=== PATIENT | female | born 1950 | race Caucasian/White ===

== ENCOUNTER 2025-04-10 14:38 | Inpatient (IN) | payer MEDICARE, OTHER, SELFPAY ==
[2025-04-10] VITALS (8 sets, daily range): BP systolic 86–120; BP diastolic 51–73; BMI 33.4
[2025-04-10 12:03] LABS: Hematocrit 41.8 % (37.0-47.0); Hemoglobin 15.0 g/dL (12.0-16.0); Mean Corp Hgb Conc. 35.9 g/dL (33.0-37.0); Mean Corpuscular Volume 90.5 fL (81.0-99.0); Nucleated Red Blood Cells % 0 %; Platelet Count 285 10^3/uL (130-400); Red Cell Dist. Width 12.1 % (11.5-14.5)
[2025-04-10] MEDS: NSS 1000 IV ×2 (12:15→17:47)
[2025-04-10 12:20] LABS: COVID-19 Antigen Negative (Negative)
[2025-04-10 12:20] LABS: ALT (SGPT) 21 U/L (0-35); AST (SGOT) 27 U/L (14-36); Albumin 4.7 g/dl (3.5-5.0); Alkaline Phosphatase 87 U/L (38-126); Blood Urea Nitrogen 64 mg/dl (7-17); Calcium 9.3 mg/dl (8.4-10.2); Chloride 69 mmol/L (98-107); Glucose 123 mg/dl (70-99); Potassium 2.9 mmol/L (3.5-5.1); Sodium 128 mmol/L (135-145); Total Protein 7.7 g/dl (6.3-8.2); eGFR 15.92
[2025-04-10 12:32] LABS: Troponin I 0.015 ng/ml
[2025-04-10 12:37] LABS: Carbon Dioxide 45 mmol/L (22-30)
--- NOTE | 2025-04-10 13:56 | ED.GENMED ---
History of Present Illness
General
Chief Complaint: Weakness
Time Seen by Provider: 04/10/25 11:30
History of Present Illness
History of Present Illness:
74-year-old female with history of high blood pressure and diabetes presenting to the emergency department for generalized weakness. Patient reports symptoms for the last 5 days. Reports that her lips feel dry. She notes that she does not drink a
lot of water, usually jack claudette. Reports that she has been told in the past that she has chronic kidney disease, however reports that her last baseline kidney function was 1.1. Denies any fall or trauma. Denies any focal weakness. Denies fever.
Denies cough, chest pain, difficulty breathing. Denies any abdominal pain. Denies any known sick contacts. Denies additional acute medical complaints
Phy Exam
Physical Exam
Physical Exam:
General: Dry mucous membranes, otherwise nontoxic and in no acute distress
HEENT: protecting airway
Neck: appears supple
CV: Normal heart rate, regular rhythm
Resp: No accessory muscle use, no increased work of breathing, lungs clear to auscultation bilaterally
Abd: Soft and non-distended, no tenderness to palpation
Extremities: No deformities, no swelling
Neuro: alert, no focal neurologic deficit
: deferred
Rectal: deferred
Psych: Normal affect
Skin: Intact
Course
Orders/Labs/Results
Orders:
Orders
04/10/25 11:39
Comprehensive Metabolic Panel Urgent
04/10/25 11:40
COVID-19 Antigen Urgent
Source: Nasal Swab
Complete Blood Count/With Diff Routine
Influenza A+B Rapid Molecular Urgent
MARIAMA Source: Nasal Swab
Specimen Description:
04/10/25 11:41
Electrocardiogram (*1) Urgent
Reason for Study: Fatigue / Weakness
EKG- Treatment ONCE
04/10/25 11:42
Troponin I Urgent
04/10/25 12:04
0.9% Sodium Chloride 1000 ml [Nss] 1,000 ml IV BOLUS
04/10/25 13:53
Urine Reflex Culture from UA [Urinalysis Reflex To Culture] Urgent
Date Specimen was Collected: 04/10/25
Time Specimen was Collected: 13:54
Abnormal Lab Results
04/10/25 04/10/25
11:39 11:40
MCH 32.5 H pg
(27.0-31.0)
Absolute Lymphs (auto) 1.1 L 10^3/uL
(1.2-3.4)
Neutrophils % 76.2 H %
(42.2-75.2)
Lymphocytes % 13.9 L %
(20.5-51.1)
Sodium 128 L mmol/L
(135-145)
Potassium 2.9 L mmol/L
(3.5-5.1)
Chloride 69 L mmol/L
(98-107)
Carbon Dioxide 45 H mmol/L
(22-30)
BUN 64 H mg/dl
(7-17)
Creatinine 3.0 H mg/dL
(0.6-1.0)
Glucose 123 H mg/dl
(70-99)
04/10/25 11:40
04/10/25 11:39
Vital Signs
Initial and Last Documented VS:
Initial Vital Signs
Temp Pulse Resp BP Pulse Ox
97.4 F 82 18 86/51 98
04/10/25 11:17 04/10/25 11:17 04/10/25 11:17 04/10/25 11:17 04/10/25 11:17
Last Documented Vital Signs
Temp Pulse Resp BP Pulse Ox
97.4 F 71 14 103/73 97
04/10/25 11:17 04/10/25 11:45 04/10/25 11:45 04/10/25 11:53 04/10/25 11:53
MDM/Problems Addressed
MDM/Problems Addressed:
74-year-old female with history of hypertension and diabetes presenting for generalized weakness and fatigue. Vital signs on arrival significant for low blood pressure.
On exam patient has no acute distress, however does have dry mucous membranes. Patient notes generalized fatigue and weakness, otherwise no significant symptoms. EKG obtained on arrival, nonischemic. Does have slightly prolonged QTc. Blood
pressure is low, and patient with dry mucous membranes. Suspect overall dehydration and volume depletion. Starting patient on IV fluids. Plan for laboratory analysis including electrolyte panel and CBC. Otherwise patient afebrile, nontoxic with
lower suspicion for systemic infection. Unremarkable neurologic exam, with no focal deficits without concern for central neurologic process.
14:00 - Labs show a creatinine of 3. Patient believes her baseline is around 1.1. Sodium is also 128. Patient reports that she has had issues with this in the past, however does not believe it has been this low. Potassium is also low. Will
replete. Continue to suspect acute dehydration. Plan for admission for acute kidney injury and hyponatremia
*Pulse Oximetry
SaO2: 97
Oxygen Mode of Delivery: Room air
Patient hypoxic: no
*EKG
Interpreted by ED Provider?: Yes
EKG Intrepretation Date: 04/10/25
EKG Intrepretation Time: 13:58
Interpretation: abnormal
Comparison EKG: no comparison EKG present
Heart Rate: 73
Rate: normal
Rhythm: sinus
[place]: normal axis
Interval: long QT
QRS Pattern: normal QRS
Ischemia: no ischemia
*Critical Care Note
Total Time (30-74mins, 75-104mins- exclusive of procedures): Not Applicable
ED Attending Note
-
Portions of this chart may have been created with voice recognition software.� Occasional wrong word or��sound alike� substitutions may have occurred due to the inherent limitations of voice recognition software.
Discharge Plan
Departure
Referrals:
Lucas Hoff MD [Family Provider, [facility]]
Interventions
Interventions:
*Risk Screen - Suicide Last Done: 04/10/25 11:17
*General Assessment Last Done: 04/10/25 11:17
ED- Cardiac Assessment Last Done: 04/10/25 11:37
ED- Neurological Assessment Last Done: 04/10/25 11:37
ED- Pulmonary Assessment Last Done: 04/10/25 11:37
Discharge Date and Time
Print Language: SLOVENIAN
--- NOTE | 2025-04-10 14:07 | HPS.HSE ---
Family Physician
-
Family Physician: Lucas Hoff
Chief Complaint
-
poor appetite
-weight loss
generalized weakness
History of Present Illness
74-year-old female with history of high blood pressure and diabetes, anxiety presented to us with poor oral intake, generalized weakness, lightheaded for past few days. she lost 6lbs in 3 weeks. patient stated less urine output. presenting to the
emergency department for generalized weakness. Reports that her lips feel dry. Reports that she has been told in the past that she has chronic kidney disease and follows nephrology as outpatient. Denies any focal weakness. Denies fever. Denies
cough, chest pain, difficulty breathing. Denies any abdominal pain,n,v,d. denied dysuria or hematuria.
upon arrival she was noted hypotensive, with LISA, hyponatremia and hypokalemia. Patient received IV KCl, oral KCl and fluids in the ER. Admitting for further management
Medical History
Past Medical History
Past Medical History: Reports Other
Additional Past Medical History:
Hypertension, anxiety, IBS, hypothyroidism, hyperlipidemia, osteoporosis, obesity, hyperparathyroidism
Past Surgical History: Reports Other
Additional Past Surgical History:
Thyroid surgery
sinus surgery
Social History
Tobacco: Non-smoker
Alcohol: None
Drug: None
Personal:
Living: With Family
Family History
Family History: Not pertinent
Allergies / Home Medications
Allergies reflects when Allergies were last updated in [facility].
Home Medications with original date entered in [facility]
Allergy/Medication List:
Allergies
Allergy/AdvReac Type Severity Reaction Status Date / Time
sulfamethoxazole (From Allergy Unknown Verified 04/10/25 11:19
Bactrim)
trimethoprim (From Bactrim) Allergy Unknown Verified 04/10/25 11:19
Home Medications
acetaminophen 325 mg tablet (Tylenol) 650 mg PO Q6HPRN PRN mild pain 04/10/25
alprazolam 2 mg tablet (Xanax) 2 mg PO TID 04/10/25
cholecalciferol (vitamin D3) 25 mcg (1,000 unit) tablet (Vitamin D3) 50 mcg PO DAILY 04/10/25
gemfibrozil 600 mg tablet 600 mg PO BID 04/10/25
lactulose 10 gram/15 mL oral solution (Enulose) 20 g PO DAILYPRN PRN constipation 04/10/25
levothyroxine 100 mcg tablet (Synthroid) 100 mcg PO DAILY 04/10/25
lisinopril 2.5 mg tablet 2.5 mg PO DAILY 04/10/25
lorazepam 2 mg tablet 2 mg PO TID 04/10/25
metoprolol tartrate 25 mg tablet 25 mg PO BID 04/10/25
Review of Systems
-
Constitutional: Reports No Symptoms
EENT: Reports No Symptoms
Respiratory: Reports No Symptoms
Cardiac: Reports No Symptoms
Abdomen/GI: Reports No Symptoms
: Reports No Symptoms
Musculoskeletal: Reports No Symptoms
Skin: Reports No Symptoms
Neurological: Reports Weakness
Endocrine: Reports No Symptoms
Hematologic/Lymphatic: Reports No Symptoms
Psych: Reports No Symptoms
Physical Exam
Vital Signs
Vital Signs
Temp Pulse Resp BP Pulse Ox
97.4 F 71 14 103/73 97
04/10/25 11:17 04/10/25 11:45 04/10/25 11:45 04/10/25 11:53 04/10/25 13:57
Physical Exam
General: Well Developed, Well Nourished and No Apparent Distress
HEENT: NormoCephalic, Moist mucous membranes and Atraumatic
Respiratory: Clear
Cardiac: S1/S2 and Regular Rhythm; No Murmur or Rub
GI: Soft, Non Tender, Non Distended and Normal Bowel Sounds; No Organomegaly
Rectal: Deferred by Provider
Musculoskeletal: No Clubbing, No Cyanosis and No Edema
Skin: No Rash
Neuro: AO x 3 and Nonfocal/grossly intact
Psych: Calm
Laboratory Results
-
04/10/25 11:40
04/10/25 11:39
Laboratory Results
Total Bilirubin 1.1 mg/dl (0.2-1.3) 04/10/25 11:39
AST 27 U/L (14-36) 04/10/25 11:39
ALT 21 U/L (0-35) 04/10/25 11:39
Alkaline Phosphatase 87 U/L (38-126) 04/10/25 11:39
Troponin I 0.015 ng/ml 04/10/25 11:42
Data Reviewed
-
Lab Data: Labs Reviewed by me
Impression/Plan
-
# Generalized weakness secondary to hypotension
# Hypotension likely from dehydration
- PT/OT consulted
- Hypotension improving with fluids
# Acute kidney injury/hyponatremia likely from dehydration
- Normal saline continued
- Continue to monitor BMP
- Sodium 128, creatinine 3.0, BUN 64
- Avoid nephrotoxic
# Hypokalemia likely from poor oral intake
- Replaced with IV KCl
- Continue to monitor BMP
# Anxiety
- Xanax, lorazepam continued
# Hyperlipidemia
- Gemfibrozil continued
# Hypothyroidism
- Levothyroxine continue
# Essential hypertension
- Hold lisinopril LISA and hypotension
- Hold metoprolol due to hypotension
# DVT prophylaxis
- Heparin subcu
# CODE STATUS
- Full code
[2025-04-10 14:08] LABS: Urine Character Clear (Clear)
--- NOTE | 2025-04-10 14:08 | W.PN.UPDATE ---
Addendum entered and electronically signed by Felipe Benavides MD 04/10/25 14:34:
Addendum modification to my HPI
HPI
74F HX HTN on ACEi and Metoprolol, HLD pw generalized weakness for past several days.
- No specific symptoms.
- Hypotensive or arrival, improved with WO NS IV
- Labs POS for LISA with hyponatremia. Creatinine is 3, says her baseline is around 1.
- Reports she doesn't drink a lot of water, she sips on jack claudette.
- Potassium 2.9, with contraction alkalosis
Suspect dehydration led to hypovolemia mediated hypotension - poor POs H2O intake
Severe LISA suspect prerenal mediated and functions of Lisinopril
Contraction alkalosis
Associated with weakness
Original Note:
Update Note
Progress Note Update
This note serves as an addendum to the H&P by job molder GERARDO�
Eduarda MYKE�
�
HPI
HX HTN and HLD coming in with generalized weakness for past several days. No specific symptoms. Hypotensive here, improved with some fluids. Has an LISA with hyponatremia. Creatinine is 3, says her baseline is around 1. Says she doesn't drink a lot
of water, she sips on jack claudette. Potassium is also 2.9, so repleting. Admitting for the LISA and sodiu
PHX; see above
Relevant VS
04/10/25
11:17 04/10/25
11:53
Temp 97.4 F
Pulse 82
Resp Rate 18
Blood pressure 86/51 103/73
SaO2 98
Oxygen Mode of Delivery Room air
PE
Gen: NAD, non toxic
HEENT: anicteric
Neck: supple
Lungs: CTA
Cor: RRR S1 S2
Abdomen:� soft NT, NG , NRT
SECURITY SOLUTIONS ENGINEER: AAO3
MS: no edema
Psych: Nl affect
Relevant Data
04/10/25 04/10/25
11:39 11:40
WBC 8.1
Hgb 15.0
Plt Count 285
Sodium 128 L
Potassium 2.9 L
Chloride 69 L
Carbon Dioxide 45 H
BUN 64 H
Creatinine 3.0 H
eGFR 15.92
Glucose 123 H
NO PRIOR DH and hospitalist admission:
ASSESSMENT & PLAN
Pending Rx reconciliation
Hypotension - improved BP with NS WO
Suspect dehydration led to hypovolemia mediated hypotension - poor POs H2O intake
Severe LISA suspect prerenal mediated and functions of Lisinopril
Contraction alkalosis
Associated with weakness
- Bladder scan
- Avoid nephrotoxic agents
- Hold Lisinopril and Metoprolol for now
- c/w IV NS
- Correct K as needed
- Trend RFTs
- PT
- If no progress with Cr in next 24hrs , to consider Renal consult
Hypovolemia l mediated Hypotension
HX HTN
- to hold all PATROL SUPERVISOR Lisinopril and Metoprolol for now
HLD
DVT Px: SQH
Full code
MS
[2025-04-10 14:22] LABS: Urine Red Blood Cell 0-2 /HPF (0-2)
--- NOTE | 2025-04-10 15:04 | EDCM ---
CM reviewed chart and met with pt bedside in ED. Lives with her in 2 story home, [address], first floor half bath, full flight to second floor bedroom and full bath.
Independent in ADLs, personal care and ambulation at baseline, still driving. No assistive device, no DME
Confirms prescription coverage.
No hx VN or SNF
PCP: Lucas Hoff
Pharmacy: [facility]
Anticipate discharge home, CM will continue to follow for all discharge planning needs.
[2025-04-10] MEDS: KCL 270 MEQ IV (15:07)
[2025-04-10] MEDS: ATIVAN 2 MG PO (17:46)
[2025-04-10] MEDS: XANAX 2 MG PO ×2 (17:46→22:58)
[2025-04-10 18:32] LABS: Magnesium 4.3 mg/dl (1.6-2.3)
[2025-04-10] MEDS: HEPARIN 5000 UNITS SC (22:49)
[2025-04-11] VITALS (8 sets, daily range): BP systolic 98–142; BP diastolic 62–81; PULSE 80–99; O2SAT 98; BMI 33.4
[2025-04-11] MEDS: ATIVAN PO (00:16)
[2025-04-11] MEDS: NSS 1000 IV ×3 (03:40→20:33)
[2025-04-11] MEDS: SYNTHROID 100 MCG PO (05:57)
[2025-04-11 06:00] LABS: Hematocrit 35.7 % (37.0-47.0); Hemoglobin 12.6 g/dL (12.0-16.0); Mean Corp Hgb Conc. 35.3 g/dL (33.0-37.0); Mean Corpuscular Volume 94.2 fL (81.0-99.0); Platelet Count 212 10^3/uL (130-400); Red Cell Dist. Width 12.1 % (11.5-14.5)
[2025-04-11 06:03] LABS: Blood Urea Nitrogen 50 mg/dl (7-17); Calcium 8.3 mg/dl (8.4-10.2); Chloride 84 mmol/L (98-107); Estimated Creatinine Clearance 29 ml/min; Glucose 99 mg/dl (70-99); HDL Cholesterol 49 mg/dl; LDL Cholesterol, Calculated 67 mg/dl; Potassium 2.9 mmol/L (3.5-5.1); Sodium 129 mmol/L (135-145); Very Low Density Lipoprotein 24 mg/dl (0-30); eGFR 29.38
[2025-04-11 06:14] LABS: Carbon Dioxide 41 mmol/L (22-30)
[2025-04-11 06:56] LABS: Hepatitis C Antibody Negative (Negative)
--- NOTE | 2025-04-11 07:24 | W.PN.HOSP.TC ---
Addendum entered and electronically signed by Saul Li DO 04/12/25 12:40:
#CDI: LISA on CKD
Original Note:
Today's Communication/Plan
-
calorie count
Nutrition consult
resume metoprolol
Repeat bmp at noon
Check urine sodium and urine osm
Assessment / Plan
Assessment / Plan
Taylor is a 73-year-old female with history of essential hypertension, generalized anxiety disorder, obesity, hyperparathyroidism, hypothyroidism, who presented with generalized weakness, decreased appetite for last 3 weeks. She has lost about 12
pounds in the last 1 to 2 months. She said she has been trying to weight loss by cutting carbs since 2020 and has lost a total of 41 pounds. She has IBS, so she has alternating constipation and diarrhea but denies any nausea or vomiting or
abdominal pain. She has noticed increase in urine frequency. She had a fall in June 2024 that resulted in hematoma of head, sternal fractures, rib fractures and spine fracture involving L3-L4-L5. She said she was on bed for 2 months for
recovery. She sees a neurosurgeon for her back pain, her appointment was due today but she was feeling very tired and weak and that is why she ended up in the hospital. She said she is happy with her weight loss and would not wanted back.
Otherwise she feels well and has better energy today.
She was referred to nephrology by PCP in January 2024 for elevated serum creatinine of 9 (LISA), for which she had an admission in [place] in November 2023, she was recommended to increase fluid intake as she had possible calcium carbonate crystals in her
urine analysis. She was also recommended to remain off of lisinopril and hydrochlorothiazide and was started on amlodipine and metoprolol. Her LISA risk resolved and her CT scan abdomen at that time did not show any obstruction.
She is supposed to see gastroenterology for IBS, diverticulosis and bloating as a new patient in July.
#LISA secondary to dehydration
Hemoconcentration, elevated BUN
Serum creatinine 3 on presentation, now down to 1.8
Hold lisinopril due to nephrotoxic potential
Avoid NSAIDs and other nephrotoxic drugs
#Hypokalemia secondary to poor intake
Presented with a potassium of 2.9
Labs this morning show potassium of 2.9, replace 40 mill EQ blends orally and 40 mEq IV
Continue to monitor and replete as needed
#Hyponatremia
Continue to rehydrate the patient and continue to monitor BMPs
Check urine sodium and urine osm
#History of weight loss
As per the patient, she has tried to lose weight through restricting her diet since 2020 and has lost a total of 10 pounds
On her last appointment with her neurosurgeon she had lost 12 pounds over the last 1 month
Never been on weight loss medications
Poor appetite and generalized weakness from last 2 weeks
calorie count
Nutrition consult
#History of hyperparathyroidism-calcium levels normal on presentation, check phosphate levels, check PTH levels
#Ambulatory dysfunction due to deconditioning-rehydrate and PT/OT consult
#History of LAYLA-continue Xanax
#History of hypothyroidism-continue levothyroxine and check thyroid function
#Essential hypertension-hold antihypertensives
Anticipated Discharge: 24 - 48 hours
Subjective/Interval History
-
Date of Service: April 11, 2025
Patient seen and examined at bedside
Feels better than yesterday and has more energy
Review of systems negative
Objective Data
-
Labs:
Laboratory Results
04/11/25
05:16
WBC 6.5
Hgb 12.6
Hct 35.7 L
Plt Count 212 D
Sodium 129 L
Potassium 2.9 L
Chloride 84 L
Carbon Dioxide 41 H
BUN 50 H
Creatinine 1.8 H
Glucose 99
Calcium 8.3 L
Vital Signs:
Vital Signs
Temp Pulse Resp BP Pulse Ox
98.3 F 76 18 107/68 97
04/11/25 07:09 04/11/25 07:09 04/11/25 07:09 04/11/25 07:09 04/11/25 07:09
I&O
04/10/25 04/11/25 04/12/25
06:59 06:59 06:59
Intake Total 480 / 480
Balance 480 / 480
Review of Systems
-
All other systems: Reviewed and negative
Physical Exam
-
General: Well Developed, No Apparent Distress and Comfortable
HEENT: Atraumatic and Moist Mucous Membranes
Respiratory: Clear to Auscultation; Negative Wheezes, Rales or Rhonchi
Cardiac: Regular Rhythm and S1/S2
GI: Soft, Nontender and Normal Bowel Sounds
Musculoskeletal: No Clubbing, No Cyanosis and No Edema
Skin: Warm, Dry and Other (Stasis dermatitis in both feet)
Neuro: Awake, AO x 3 and Nonfocal/Grossly Intact
Psych: Calm
[2025-04-11] MEDS: XANAX 2 MG PO ×3 (07:42→22:57)
[2025-04-11] MEDS: VITAMIN D3 (cholecalciferol) 50 MCG PO (07:42)
[2025-04-11] MEDS: ATIVAN 2 MG PO ×3 (07:42→23:51)
[2025-04-11] MEDS: HEPARIN 5000 UNITS SC ×2 (07:42→20:35)
[2025-04-11] MEDS: KCL 40 MEQ PO ×2 (08:14→14:13)
[2025-04-11] MEDS: KCL 270 MEQ IV (08:14)
[2025-04-11 11:13] LABS: TSH 0.59 uIU/ml (0.47-4.68)
[2025-04-11 11:18] LABS: Hepatitis B Surface Antigen Negative (Negative)
[2025-04-11 13:18] LABS: Blood Urea Nitrogen 45 mg/dl (7-17); Calcium 8.6 mg/dl (8.4-10.2); Carbon Dioxide 34 mmol/L (22-30); Chloride 92 mmol/L (98-107); Estimated Creatinine Clearance 32 ml/min; Glucose 109 mg/dl (70-99); Potassium 3.6 mmol/L (3.5-5.1); Sodium 131 mmol/L (135-145); eGFR 33.84
[2025-04-12 03:30] VITALS: BP 118/75
[2025-04-12 05:54] LABS: Hematocrit 36.4 % (37.0-47.0); Hemoglobin 12.4 g/dL (12.0-16.0); Mean Corp Hgb Conc. 34.1 g/dL (33.0-37.0); Mean Corpuscular Volume 94.8 fL (81.0-99.0); Platelet Count 201 10^3/uL (130-400); Red Cell Dist. Width 12.2 % (11.5-14.5)
[2025-04-12] MEDS: SYNTHROID 100 MCG PO (06:05)
[2025-04-12 06:19] LABS: Blood Urea Nitrogen 29 mg/dl (7-17); Calcium 8.4 mg/dl (8.4-10.2); Carbon Dioxide 29 mmol/L (22-30); Chloride 102 mmol/L (98-107); Estimated Creatinine Clearance 40 ml/min; Glucose 88 mg/dl (70-99); Potassium 3.8 mmol/L (3.5-5.1); Sodium 135 mmol/L (135-145); eGFR 43.42
[2025-04-12 07:00] VITALS: BP 120/69
[2025-04-12] MEDS: HEPARIN 5000 UNITS SC (07:58)
[2025-04-12] MEDS: VITAMIN D3 (cholecalciferol) 50 MCG PO (07:58)
[2025-04-12] MEDS: XANAX 2 MG PO (07:58)
[2025-04-12] MEDS: ATIVAN 2 MG PO (07:58)
--- NOTE | 2025-04-12 08:58 | W.PN.HOSP.TC ---
Today's Communication/Plan
-
Discharge and follow-up with PCP on outpatient basis
Assessment / Plan
Assessment / Plan
Taylor is a 73-year-old female with history of essential hypertension, generalized anxiety disorder, obesity, hyperparathyroidism, hypothyroidism, who presented with generalized weakness, decreased appetite for last 3 weeks. She has lost about 12
pounds in the last 1 to 2 months. She said she has been trying to weight loss by cutting carbs since 2020 and has lost a total of 41 pounds. She has IBS, so she has alternating constipation and diarrhea but denies any nausea, vomiting or abdominal
pain. She has noticed increase in urine frequency. She had a fall in June 2024 that resulted in hematoma of head, sternal fractures, rib fractures and spine fracture involving L3-L4-L5. She said she was on bed for 2 months for recovery. She
sees a neurosurgeon for her back pain, her appointment was due today but she was feeling very tired and weak and that is why she ended up in the hospital. She said she is happy with her weight loss and would not wanted back. Otherwise she feels
well and has better energy today.
She was referred to nephrology by PCP in January 2024 for elevated serum creatinine of 9 (LISA), for which she had an admission in [place] in November 2023, she was recommended to increase fluid intake as she had possible calcium carbonate crystals in her
urine analysis. She was also recommended to remain off of lisinopril and hydrochlorothiazide and was started on amlodipine and metoprolol.CT scan abdomen at that time did not show any obstruction.
She is supposed to see gastroenterology for IBS, diverticulosis and bloating as a new patient in July.
#LISA secondary to dehydration
Serum creatinine trending down, now 1.3
Avoid lisinopril, NSAIDs and other nephrotoxic drugs
Repeat BMP in the afternoon serum creatinine and electrolytes
#Hypokalemia secondary to poor intake
Resolved, 3.8
Patient on regular diet as per measurement psychologist
#Hyponatremia
Resolved
Urine osmolality slightly decreased possibly due to rehydration with fluids
Sodium levels 135
#History of weight loss
Intentional weight loss
Calorie count
Clutch Mechanic onsult appreciated-patient on regular diet-calories recommended 1538 kcal with 78 g of proteins daily, 1538 mL/kcal fluid requirement
Check vitamin B 12, folate and iron levels
Screenings including colonoscopy and mammogram on outpatient basis
#History of hyperparathyroidism-Normal calcium and phosphate levels
#Ambulatory dysfunction due to deconditioning-rehydrate and PT/OT consult- Recommend home health
#History of LAYLA-continue Xanax
#History of hypothyroidism-continue levothyroxine and check thyroid function
#Essential hypertension-hold antihypertensives
Anticipated Discharge: Within 24 hours
Subjective/Interval History
-
Date of Service: April 12, 2025
Patient seen and examined at bedside
Feeling better, has a lot of energy
Alert and oriented, kidney function improved, serum electrolytes improved
Denies any complaints
Objective Data
-
Labs:
Laboratory Results
04/12/25
05:12
WBC 5.4
Hgb 12.4
Hct 36.4 L
Plt Count 201
Sodium 135
Potassium 3.8
Chloride 102
Carbon Dioxide 29
BUN 29 H
Creatinine 1.3 H
Glucose 88
Calcium 8.4
Vital Signs:
Vital Signs
Temp Pulse Resp BP Pulse Ox
98.4 F 83 19 120/69 96
04/12/25 07:00 04/12/25 07:00 04/12/25 07:00 04/12/25 07:00 04/12/25 07:00
I&O
04/11/25 04/12/25 04/13/25
06:59 06:59 06:59
Intake Total 480 / 480 540 / 540
Balance 480 / 480 540 / 540
Review of Systems
-
All other systems: Reviewed and negative
Physical Exam
-
General: Well Developed, Well Nourished, No Apparent Distress and Obese
HEENT: Normocephalic, Atraumatic and Moist Mucous Membranes
Respiratory: Clear to Auscultation; Negative Wheezes, Rales or Rhonchi
Cardiac: Regular Rhythm and S1/S2; Negative Murmur, Rub or Gallop
GI: Soft, Nontender and Normal Bowel Sounds
Musculoskeletal: No Clubbing, No Cyanosis and No Edema
Skin: Warm and Dry
Neuro: Awake, AO x 3, No Motor Deficits and Nonfocal/Grossly Intact
Psych: Calm
--- NOTE | 2025-04-12 09:28 | W.DCSUMMARY ---
Documented by User: Chet Mccollum MD, Resident 04/12/25 11:50
Discharge Summary
Discharge Data
Date of Admission: 04/10/25
Date of Discharge: 04/12/25
-
Pending Results: No
Hospital Course
Discharging Physician :
Saul Li
Disposition :
Home with home care
Primary care physician :
Koko Pagan
Principal Discharge diagnosis :
Prerenal LISA secondary to hypotension/electrolyte abnormality secondary to dehydration and decreased intake
Chronic Discharge diagnosis :
Hypertension, anxiety, IBS, hypothyroidism, hyperlipidemia, osteoporosis, obesity, hyperparathyroidism
Hospital Course :
Taylor is a 73-year-old female with past medical history of essential hypertension, generalized anxiety disorder, obesity, hypothyroidism who presented with generalized weakness and decreased appetite for the last 3 weeks
She lost about 12 pounds in the last 1 to 2 months. She was initially trying to weight loss by cutting carbs since 2020 and had lost a total of 41 pounds. But for the last 6 weeks she had no appetite and that resulted in the weight loss
She has IBS, and alternating constipation and diarrhea is normal for her but denies any nausea, vomiting or abdominal pain. She did not this an increase in urine frequency. She is recovering from a fall that she had in June 2024 and still has
some back pain. She sees a neurosurgeon for her back pain.
#Prerenal LISA secondary to dehydration/hypotension
On evaluation in the ER she was found to have a creatinine of 3 which is above her baseline, along with electrolyte abnormalities including hyponatremia and hypokalemia.
She was rehydrated and her lisinopril was held.
She has had an LISA episode last year as well and her lisinopril was held at that time. Her LISA resolved after stopping lisinopril and rehydration.
Would stop the lisinopril medication on discharge.
#Electrolyte derrangements
Electrolytes were replaced, hypokalemia and hyponatremia resolved on discharge
#Weight loss
For her weight loss, she was trying to lose weight intentionally.
She was using less calories than required for her body, inpatient accredited farm manager consult was done who recommended 1538 kcal/day along with 78 g of protein and 1538 mL of fluid daily.
Discharge Plan
-
Patient Disposition: Home with Home Care
Discharge Diagnosis/Procedures: Prerenal LISA secondary to hypotension/electrolyte derangement secondary to dehydration and poor intake
Condition: Fair
Diet: Regular
Additional Diets: 1538 kcal along with 78 g proteins daily as recommended by accredited farm manager along with 1538 mL fluid daily
Activity: As tolerated
Driving Restrictions: As prior to admission
Bathing Restrictions: OK to Shower
Other Services: VN
Referrals:
Lucas Hoff MD [Family Provider, [facility]] - in less than 1 week
Additional Discharge Medication Instructions: Stop lisinopril due to nephrotoxic potential, recurrent LISA
Follow-up with PCP/latexer with blood pressure log for Hypertension
Prescriptions:
Continued
lorazepam 2 mg Tablet
2 mg PO TID
acetaminophen [Tylenol] 325 mg Tablet
650 mg PO Q6HPRN PRN (Reason: mild pain)
levothyroxine [Synthroid] 100 mcg Tablet
100 mcg PO DAILY
gemfibrozil 600 mg Tablet
600 mg PO BID
alprazolam [Xanax] 2 mg Tablet
2 mg PO TID
metoprolol tartrate 25 mg Tablet
25 mg PO BID
lactulose [Enulose] 10 gram/15 mL Solution
20 g PO DAILYPRN PRN (Reason: constipation)
cholecalciferol (vitamin D3) [Vitamin D3] 25 mcg (1,000 unit) Tablet
50 mcg PO DAILY
Discontinued
lisinopril 2.5 mg Tablet
2.5 mg PO DAILY
Discharge Orders:
Discharge Patient (As Directed); Ordered 04/12/25
Ordered By: Chet Mccollum
Discharge Date and Time
Print Language: ESTONIAN

Documented by User: Saul Li DO 04/12/25 12:15
Discharge Summary
Discharge Data
Date of Admission: 04/10/25
Date of Discharge: 04/12/25
Total time spent discharging patient (in min): 31
Discharge Plan
-
Patient Disposition: Home with Home Care
Discharge Diagnosis/Procedures: Prerenal LISA secondary to hypotension/electrolyte derangement secondary to dehydration and poor intake
Condition: Fair
Diet: Regular
Additional Diets: 1538 kcal along with 78 g proteins daily as recommended by accredited farm manager along with 1538 mL fluid daily
Activity: As tolerated
Driving Restrictions: As prior to admission
Bathing Restrictions: OK to Shower
Other Services: VN
Referrals:
Lucas Hoff MD [Family Provider, Family Practice] - in less than 1 week
Additional Discharge Medication Instructions: Stop lisinopril due to nephrotoxic potential, recurrent LISA
Follow-up with PCP/latexer with blood pressure log for Hypertension
Prescriptions:
Continued
lorazepam 2 mg Tablet
2 mg PO TID
acetaminophen [Tylenol] 325 mg Tablet
650 mg PO Q6HPRN PRN (Reason: mild pain)
levothyroxine [Synthroid] 100 mcg Tablet
100 mcg PO DAILY
gemfibrozil 600 mg Tablet
600 mg PO BID
alprazolam [Xanax] 2 mg Tablet
2 mg PO TID
metoprolol tartrate 25 mg Tablet
25 mg PO BID
lactulose [Enulose] 10 gram/15 mL Solution
20 g PO DAILYPRN PRN (Reason: constipation)
cholecalciferol (vitamin D3) [Vitamin D3] 25 mcg (1,000 unit) Tablet
50 mcg PO DAILY
Discontinued
lisinopril 2.5 mg Tablet
2.5 mg PO DAILY
Discharge Orders:
Discharge Patient (As Directed); Ordered 04/12/25
Ordered By: Chet Mccollum
Discharge Date and Time
Print Language: ESTONIAN
[2025-04-12 09:48] LABS: Magnesium 2.7 mg/dl (1.6-2.3)
[2025-04-12] MEDS: KCL 40 MEQ PO (10:10)
[2025-04-12 11:00] VITALS: BP 119/80
--- NOTE | 2025-04-12 11:59 | PN.CDI ---
CDI
- -
CDI:
Physician Documentation Request
Admit Date: 04/10/25 14:38
Dear Doctor Guillermo/Resident ,
Please review the following and provide your response in the progress notes.
Clinical Indicators:
Pt admitted with LISA
Documented per ED, ' Reports that she has been told in the past that she has chronic kidney disease, however reports that her last baseline kidney function was 1.1...'
Documented per H&P, ' Reports that she has been told in the past that she has chronic kidney disease and follows nephrology as outpatient...'
Laboratory Tests
04/12/25
05:12
Creatinine 1.3 H
eGFR 43.42
Please provide the suspected stage of CKD:
Stages of Chronic Kidney Disease*
Level Description GFR
G1 Normal or High >90
G2 Mildly decreased 60-89
G3a Mildly to moderately decreased 45-59
G3b Moderately to severely decreased 30-44
G4 Severely decreased 15-29
G5 Kidney failure <15
Use of terms such as suspected, likely, concern for, or probable (associated with a specific diagnosis that is being evaluated, monitored, or treated as if it exists) are acceptable and can be coded in the inpatient setting, when documented at the
time of discharge.
Thank you,
Kathy Preciado RN
CDI Specialist
[place] Text
Please use your independent medical judgment in providing your response.
*Source: Kidney Disease: Improving Global Outcomes (KDIGO) 2012
[2025-04-12 12:22] LABS: Ferritin 92.8 ng/ml (11.1-264.0)
[2025-04-12 12:53] LABS: Folate 6.1 ng/ml (2.76-20); Vitamin B12 328 pg/ml (239-931)
--- NOTE | 2025-04-12 14:26 | CM ---
MD entered order for discharge.
Spoke with patient in room.
She said that Jalen will drive her home,.Offered VN she said declined need.
PLAN Home no needs
== END 2025-04-12 13:56 | disposition home or self-care (01) | DRG 683 ==
LOC: 3 WEST ACU 14:38
PROVIDERS: Emergency Medicine; Registered Nurse; ADMITTING PHYSICIAN Internal Medicine; ATTENDING PHYSICIAN Internal Medicine; EMERGENCY PHYSICIAN Student in an Organized Health Care Education/Training Program; FAMILY PHYSICIAN Family Medicine
DX: N17.9 Acute kidney failure, unspecified (principal); E87.1 Hypo-osmolality and hyponatremia; E87.3 Alkalosis; I12.9 Hypertensive chronic kidney disease with stage 1 through stage 4 chronic kidney disease, or unspecified chronic kidney disease; I95.9 Hypotension, unspecified; E86.1 Hypovolemia; E78.5 Hyperlipidemia, unspecified; F41.9 Anxiety disorder, unspecified; E86.0 Dehydration; N18.9 Chronic kidney disease, unspecified; E66.9 Obesity, unspecified; E87.6 Hypokalemia; E03.9 Hypothyroidism, unspecified; E11.22 Type 2 diabetes mellitus with diabetic chronic kidney disease; Z79.899 Other long term (current) drug therapy
CPT/HCPCS: 80048; 80053; 80061; 81003; 81015; 82607; 82728; 82746; 83735; 83935; 84100; 84300; 84443; 84484; 85025; 85027; 86704; 86706; 86803; 87086; 87340; 87502; 87811; 93005; 96360; 97163; 97167; 99285

== ENCOUNTER 2025-06-05 18:44 | Day surgery (SDC) | payer MEDICARE, OTHER, SELFPAY ==
[2025-06-05] VITALS (9 sets, daily range): BP systolic 125–156; BP diastolic 76–90; BMI 32.7
[2025-06-05 16:03] LABS: Hematocrit 40.6 % (37.0-47.0); Hemoglobin 14.7 g/dL (12.0-16.0); Mean Corp Hgb Conc. 36.2 g/dL (33.0-37.0); Mean Corpuscular Volume 92.5 fL (81.0-99.0); Nucleated Red Blood Cells % 0 %; Platelet Count 260 10^3/uL (130-400); Red Cell Dist. Width 12.7 % (11.5-14.5)
[2025-06-05 16:19] LABS: ALT (SGPT) 40 U/L (0-35); AST (SGOT) 37 U/L (14-36); Albumin 4.9 g/dl (3.5-5.0); Alkaline Phosphatase 90 U/L (38-126); Blood Urea Nitrogen 16 mg/dl (7-17); Calcium 10.0 mg/dl (8.4-10.2); Carbon Dioxide 28 mmol/L (22-30); Chloride 98 mmol/L (98-107); Glucose 110 mg/dl (70-99); Potassium 3.3 mmol/L (3.5-5.1); Sodium 137 mmol/L (135-145); Total Protein 7.7 g/dl (6.3-8.2); eGFR 59.12
[2025-06-05 16:25] LABS: Troponin I 0.013 ng/ml
--- NOTE | 2025-06-05 17:53 | ED.GENMED ---
History of Present Illness
General
Chief Complaint: Abdominal Pain
Source: patient
Exam Limitations: none
Time Seen by Provider: 06/05/25 17:02
History of Present Illness
History of Present Illness:
Note:
CHIEF COMPLAINT(S)
Pressure in the chest and inability to keep food or liquids down since last night.
HISTORY OF PRESENT ILLNESS
The patient is a 75-year-old female presenting with severe pressure in the chest and inability to ingest food or liquids since the previous night. She reports consuming several pieces of steak and experiencing a sensation of pressure, leading her to
believe it might be indigestion related to the seasoning. Throughout the night, she vomited repeatedly, primarily regurgitating saliva rather than food. The patient reports that this vomiting occurs approximately every 15 to 20 minutes. She feels
light-headed and weak as a result. Additionally, she expresses concern about potential dehydration, recalling a past hospitalization due to dehydration that resulted in hypotension and acute kidney injury. She has previously been brought close to
requiring dialysis.
The patient has not experienced similar symptoms before. She is concerned about the impact of these symptoms on her ability to consume fluids and stay hydrated. The emergency physician suspects an esophageal food bolus obstruction and plans to
discuss with gastroenterologists for potential endoscopy and start treatment with medication to alleviate the blockage.
PAST MEDICAL AND SURGICAL HISTORY
The patient was hospitalized in March due to hypotension resulting from dehydration. This episode significantly impacted her renal function.
CHRONIC MEDICAL CONDITIONS SIGNIFICANTLY AFFECTING CARE
- Hypertension: Previously on lisinopril, discontinued since March, currently managed with metoprolol reduced from 100 mg to 25 mg.
- History of dehydration leading to acute renal impairment, with historical close call with dialysis.
MEDICATIONS
Metoprolol, currently at 25 mg daily.
PHYSICAL EXAM
General: Alert, no acute distress.
Skin: Warm, dry.
Head: Normocephalic, atraumatic.
Neck: Supple, trachea midline.
Eye Ears, nose, mouth and throat: Oral mucosa moist.
Cardiovascular: Normal peripheral perfusion, No edema.
Respiratory: Respirations are non-labored.
Gastrointestinal: Abdomen nondistended.
Back: Normal range of motion, Normal alignment.
Musculoskeletal: Normal range of motion, normal strength.
Neurological: Alert and oriented to person, place, time, and situation, No focal neurological deficit observed.
Psychiatric: Cooperative, appropriate mood & affect.
PROBLEM LIST
Acute Problems:
- Esophageal food bolus suspected.
- Inability to ingest food or liquids.
- Vomiting and regurgitation of saliva.
Chronic Problems:
- Hypertension.
- History of dehydration and acute renal impairment.
PLAN
- Initiate medical treatment to relieve esophageal obstruction symptoms, possibly an endoscopy if necessary.
- Administer intravenous medication as well as nausea medication.
- Monitor kidney function and signs of dehydration.
- Consult with gastroenterology for further management.
DIFFERENTIAL DIAGNOSIS
The Differential Diagnosis includes, in no particular order and is not limited to:
- Esophageal food bolus.
- Esophageal spasm.
- Gastroesophageal reflux disease (GERD).
- Esophagitis.
- Peptic ulcer disease.
- Achalasia.
- Schatzki ring or other esophageal strictures.
- Gastritis.
- Hiatal hernia.
- Cardiac-related chest pain, such as angina pectoris.
EKG
My independent EKG interpretation is:
- Time of EKG: Not specified
- Rhythm: Sinus rhythm
- Heart Rate: 103 bpm
- [place]: Normal
- Notable Intervals: Not specified
- ST Segment: No acute changes observed
- T Wave: Not specified
- QT Interval: Not specified
- Abnormalities: None noted
Disposition:
SUMMARY OF ENCOUNTER
The patient, a 75-year-old female, presented with an inability to ingest food or liquids since consuming steak the previous night. She reported vomiting, primarily regurgitating saliva approximately every 15 to 20 minutes, leading to symptoms of
light-headedness and weakness. With concerns about dehydration and a past history of hospitalization for dehydration, esophageal food bolus obstruction was suspected. Despite initial attempts to relieve the obstruction with glucagon, the treatment
was unsuccessful. The patients EKG was evaluated to rule out cardiac concerns, revealing normal findings. Her discomfort likely stemmed from the esophageal food bolus obstruction, and gastrointestinal consultation was arranged, confirming the need
for an endoscopy.
MANAGEMENT OF THE PATIENTS CARE WAS DISCUSSED WITH
The case was discussed with gastroenterology, resulting in a decision to bring the patient to the endoscopy suite for further evaluation and management due to the suspected esophageal food bolus.
INDEPENDENT REVIEW OF LABS AND INTERPRETATION OF TESTS
My independent review of the CBC shows normal results.
My independent review of BMP indicates mild hypokalemia at 3.3 mmol/L.
My independent EKG interpretation is that it shows a normal sinus rhythm with no ischemic changes observed.
MEDICATION RECONCILIATION
Patient was on metoprolol 25 mg daily for hypertension management.
MEDICAL DECISION MAKING
- Number and Complexity of Problems Addressed: Chronic conditions affecting care such as hypertension and history of dehydration and acute renal impairment. Differential diagnosis includes esophageal food bolus, esophageal spasm, gastroesophageal
reflux disease (GERD), esophagitis, peptic ulcer disease, achalasia, esophageal strictures such as Schatzki ring, gastritis, hiatal hernia, and possible cardiac-related chest pain.
- Data:
Category 1: My independent EKG interpretation was performed showing normal results. Additionally, a BMP reviewed showed mild hypokalemia at 3.3 mmol/L.
Category 3: Discussion of management with the gastroenterology team for further evaluation and endoscopy to manage the esophageal obstruction.
- Risk: Consideration of admission/observation was considered given the complexity and risk of the patients presenting complaint, exam findings, and/or their underlying comorbidities. However, ultimately I feel the patient is safe for escalation,
reasoning: The patient was discussed with gastroenterology and will undergo endoscopic intervention to resolve the suspected esophageal obstruction, which is appropriate given the current condition and associated risks.
DIAGNOSIS
- Impaction of esophagus (K22.2)
Phy Exam
Physical Exam
Physical Exam:
.
Course
Orders/Labs/Results
Orders:
Orders
06/05/25 15:28
Electrocardiogram (*1) Urgent
Reason for Study: Other
Other Reason for Exam: indigestion
EKG- Treatment ONCE
06/05/25 15:38
Complete Blood Count/With Diff Urgent
Comprehensive Metabolic Panel Urgent
Troponin I Urgent
06/05/25 17:10
0.9% Sodium Chloride 500 ml [Nss] 500 ml IV BOLUS
Glucagon [GlucaGen] 1 mg IV NOW STA
06/05/25 17:29
Glucagon [GlucaGen] 1 mg IV NOW STA
Abnormal Lab Results
06/05/25
15:38
MCH 33.5 H pg
(27.0-31.0)
Absolute Lymphs (auto) 1.0 L 10^3/uL
(1.2-3.4)
Neutrophils % 79.4 H %
(42.2-75.2)
Lymphocytes % 13.8 L %
(20.5-51.1)
Potassium 3.3 L mmol/L
(3.5-5.1)
Glucose 110 H mg/dl
(70-99)
AST 37 H U/L
(14-36)
ALT 40 H U/L
(0-35)
06/05/25 15:38
06/05/25 15:38
Vital Signs
Initial and Last Documented VS:
Initial Vital Signs
Temp Pulse Resp BP Pulse Ox
98.0 F 115 20 156/90 98
06/05/25 15:26 06/05/25 15:26 06/05/25 15:26 06/05/25 15:26 06/05/25 15:26
Last Documented Vital Signs
Temp Pulse Resp BP Pulse Ox
98.0 F 100 15 156/90 98
06/05/25 15:26 06/05/25 17:00 06/05/25 17:00 06/05/25 15:26 06/05/25 15:26
*Pulse Oximetry
SaO2: 98
Oxygen Mode of Delivery: Room air
Patient hypoxic: no
*Critical Care Note
Total Time (30-74mins, 75-104mins- exclusive of procedures): Not Applicable
ED Attending Note
-
Portions of this chart may have been created with voice recognition software.� Occasional wrong word or��sound alike� substitutions may have occurred due to the inherent limitations of voice recognition software.
Discharge Plan
Departure
Patient Disposition: GI LAB
Date of Disposition: 06/05/25
Time of Disposition: 17:53
Admit to: GI lab
Presentation/result/management discussed w/ accepting MD/DO: Hospitalist
Discharge Problem:
Esophageal obstruction due to food impaction
Prescriptions:
No Action
lorazepam 2 mg Tablet
2 mg PO TID
acetaminophen [Tylenol] 325 mg Tablet
650 mg PO Q6HPRN PRN (Reason: mild pain)
levothyroxine [Synthroid] 100 mcg Tablet
100 mcg PO DAILY
gemfibrozil 600 mg Tablet
600 mg PO BID
alprazolam [Xanax] 2 mg Tablet
2 mg PO TID
metoprolol tartrate 25 mg Tablet
25 mg PO BID
lactulose [Enulose] 10 gram/15 mL Solution
20 g PO DAILYPRN PRN (Reason: constipation)
cholecalciferol (vitamin D3) [Vitamin D3] 25 mcg (1,000 unit) Tablet
50 mcg PO DAILY
Referrals:
Lucas Hoff MD [Family Provider, Family Practice]
Interventions
Interventions:
*Risk Screen - Suicide Last Done: 06/05/25 16:59
*General Assessment Last Done: 06/05/25 15:26
*Neglect/Abuse Screening Last Done: 06/05/25 16:59
*ED- Fall Risk Assessment Last Done: 06/05/25 16:59
*ED COVID-19 Vaccine History Last Done: 06/05/25 16:59
*ED Influenza Vaccine History Last Done: 06/05/25 16:59
HD-Gtpdud-Jtkmjwirii Assessment Last Done: 06/05/25 16:59
Discharge Date and Time
Print Language: ST HELENIAN
[2025-06-05] MEDS: NSS 500 IV (17:58)
--- NOTE | 2025-06-05 18:11 | CON.GI ---
Consultation
-
Date/Time Consultation Requested: 06/05/2025
Date/Time Consultation Performed: 06/05/2025
Requesting Provider:
Performing Provider:
Reason for Consultation: Food bolus impaction
Medical History
Chief Complaint / HPI
Chief Complaint: food impaction
History of Present Illness:
This is a 75-year-old female with past medical history of IBS-C, diverticulosis, GERD, Hypertension, anxiety, hypothyroidism, hyperlipidemia, osteoporosis, obesity, hyperparathyroidism who was in her usual state of health up until yesterday when she
was eating steak for dinner and after a couple of bites she felt that the food was stuck. She says that since then she has been unable to swallow any liquid or solid food. She is able to swallow secretions sometimes but at other times she feels that
it is regurgitating back up. She also feels discomfort in her lower substernal area and feels the food is still stuck. She denies any prior history of dysphagia prior to this. She does have a history of reflux with acidic foods especially if she
has an extra cup of coffee or orange juice and takes Tums as needed with good relief of symptoms. She never had an endoscopy in the past. She does see Dr. Ruiz and her last colonoscopy was in 2018 at [place] which she says showed
diverticulosis and was otherwise unremarkable. She currently denies any abdominal pain. She also suffers from chronic constipation and has been on MiraLAX she says that the Linzess did not really help her and also the co-pay was very high and
recently she was given samples of IBS Rella she has not started taking that yet. She is also scheduled for colonoscopy in September with Dr. Ruiz. no rectal bleeding or melena. She was admitted to [facility] in April for hypokalemia, LISA,
weakness, dehydration and hypotension and it was thought to be related to lisinopril and she was taken off of it. Her creatinine did improve with hydration.
Past Medical History
Past Medical History: Other (Hypertension, anxiety, IBS, hypothyroidism, hyperlipidemia, osteoporosis, obesity, hyperparathyroidism, diverticulosis)
Past Surgical History: Other (Thyroid surgery, sinus surgery)
Social History
Tobacco: Non-Smoker
Alcohol: None
Drug: None
Personal:
Living: With Family
Family History
Family History: Reviewed & Not Pertinent
Allergies / Home Medications
Allergy/AdvReac Type Severity Reaction Status Date / Time
sulfamethoxazole (From Allergy Unknown Verified 06/05/25 15:26
Bactrim)
trimethoprim (From Bactrim) Allergy Unknown Verified 06/05/25 15:26
�Medication �Instructions �Recorded
acetaminophen 325 mg tablet 650 mg PO Q6HPRN PRN mild pain 04/10/25
(Tylenol)
alprazolam 2 mg tablet (Xanax) 2 mg PO TID Mental Health/Anxiety 04/10/25
cholecalciferol (vitamin D3) 25 50 mcg PO DAILY Supplement 04/10/25
mcg (1,000 unit) tablet (Vitamin
D3)
gemfibrozil 600 mg tablet 600 mg PO BID High Cholesterol 04/10/25
lactulose 10 gram/15 mL oral 20 g PO DAILYPRN PRN constipation 04/10/25
solution (Enulose)
levothyroxine 100 mcg tablet 100 mcg PO DAILY Thyroid 04/10/25
(Synthroid)
lorazepam 2 mg tablet 2 mg PO TID Mental Health/Anxiety 04/10/25
metoprolol tartrate 25 mg tablet 25 mg PO BID Blood Pressure 04/10/25
Review of Systems
-
All other systems: A 12 pt ROS was Negative except as stated above in HPI
Vital Signs
Temp Pulse Resp BP Pulse Ox
98.0 F 100 15 156/90 98
06/05/25 15:26 06/05/25 17:00 06/05/25 17:00 06/05/25 15:26 06/05/25 17:54
Physical Exam
Exam
General: No Apparent Distress
HEENT: Normocephalic
Respiratory: Clear
Cardiac: S1/S2
GI: Soft, Non Tender, Non Distended and Normal Bowel Sounds
Musculoskeletal: No Clubbing
Skin: Warm
Neuro: Awake, Alert and Oriented
Psych: Calm
Results
WBC 6.9 10^3/uL (4.8-10.8) 06/05/25 15:38
Hgb 14.7 g/dL (12.0-16.0) 06/05/25 15:38
Hct 40.6 % (37.0-47.0) 06/05/25 15:38
MCV 92.5 fL (81.0-99.0) 06/05/25 15:38
Plt Count 260 10^3/uL (130-400) 06/05/25 15:38
Absolute Neuts (auto) 5.5 10^3/uL (1.4-6.5) 06/05/25 15:38
Sodium 137 mmol/L (135-145) 06/05/25 15:38
Potassium 3.3 mmol/L (3.5-5.1) L 06/05/25 15:38
Chloride 98 mmol/L (98-107) 06/05/25 15:38
Carbon Dioxide 28 mmol/L (22-30) 06/05/25 15:38
BUN 16 mg/dl (7-17) 06/05/25 15:38
Creatinine 1.0 mg/dL (0.6-1.0) 06/05/25 15:38
Calcium 10.0 mg/dl (8.4-10.2) 06/05/25 15:38
Total Bilirubin 1.0 mg/dl (0.2-1.3) 06/05/25 15:38
AST 37 U/L (14-36) H 06/05/25 15:38
ALT 40 U/L (0-35) H 06/05/25 15:38
Alkaline Phosphatase 90 U/L (38-126) 06/05/25 15:38
Laboratory Tests
04/11/25
05:16
Hep Bs Antigen Negative
Hep Bs Antibody Negative
Hep B Core Total Ab Negative
Hepatitis C Antibody Negative
Diagnostic Image Results:
Prior GI Procedures:
EGD: none
Colonoscopy: 2019 at [facility] which showed diverticulosis per patient and was otherwise unremarkable
08/04/2012
Impression: - Melanosis in the colon.
- Non-bleeding external and internal hemorrhoids.
Assessment / Plan
-
1. Food bolus impaction since she ate a couple of bites of steak for dinner last night and feels that she is not able to drink or eat since then and is able to swallow some secretions but she does feel that most of the time when she tries to drink
liquids its regurgitating back up and feels the food is still stuck she did receive 1 dose of glucagon and is now getting her second dose and still feels that the food is impacted will schedule her for an endoscopy to remove the food bolus. She
has no symptoms of dysphagia prior to this.
2. She does have a history of reflux with some foods especially orange juice and coffee and usually takes Tums as needed. She has never had an endoscopy in the past.
3. IBS-C and is currently on MiraLAX and was given samples of IBS Rella recently has not started taking it yet, she had tried Linzess in the past and did not help her. She sees Dr. Ruiz who is her outpatient GI and is scheduled for a repeat
colonoscopy in 2023, her last colonoscopy was in 2019 at [place].
4. She also has mildly elevated AST and ALT most likely from fatty liver she did have hepatitis B and C serologies checked in March which was negative, recommended that she follow-up with Dr. Ruiz as outpatient for further workup including
ultrasound and other labs.
Data Reviewed
-
Old Records: Reviewed
-
-
Thank you for consultation and allowing me to participate in the patient's care. Please call the land acquisition analyst GI physician during the after hours with any questions or concerns.
== END 2025-06-05 20:25 | disposition home or self-care (01) ==
LOC: SDS 18:44
PROVIDERS: Emergency Medicine; EMERGENCY PHYSICIAN Emergency Medicine; FAMILY PHYSICIAN Family Medicine
DX: T18.128A Food in esophagus causing other injury, initial encounter (principal); W44.F3XA Food entering into or through a natural orifice, initial encounter; K22.2 Esophageal obstruction
CPT/HCPCS: 43247; 80053; 84484; 85025; 93005; 99285; J1610